=== PATIENT | female | born 1965 | race Caucasian/White ===

== ENCOUNTER 2016-11-29 18:47 | Emergency (ER) | payer SELFPAY ==
[~2016-11-29] VITALS: Ht 157.5 cm; Wt 80.8 kg
[~2016-11-29 18:47] MED LIST: AMOXICILLIN500 MG OR; AMOXICILLIN500 MG PO; AMPICILLIN500 MG OR; DARVOCET N-100100 - OR; DARVOCET-N 100100 MG OR; FIORICE1 PO; FIORICET PO; FLEXERIL OR; FLEXERIL PO; FLEXERIL5 MG PO; LORTAB 10-325 M1 TAB PO; LORTAB 5 OR; LORTAB5 PO; METHOCARBAM500 MG PO; NAPROSYN375 MG PO; NAPROSYN500 MG PO; NAPROXEN375 MG PO; NO HOME MEDS; NORCO1 TA1 PO; PERCOCET 5/325M1 TAB PO; PROMETHAZINE25 MG OR; ROBAXIN250 MG OR; TAM75CAP PO; TRAMADOL HCL50 MG OR; TRAMADOL HCL50 MG PO; ULTRAM50 M1 PO; ULTRAM50 MG OR; ZITHROMAX250 MG PO; ZOFRAN ODT4 MG OR; ZOFRAN ODT4 MG PO; ZOFRAN4 MG/TAB PO
[2016-11-29] MEDS ORDERED: NAPROSYN500 MG PO (19:44)
[2016-11-29] MEDS ORDERED: AMOXICILLIN500 MG PO (19:44)
[2016-11-29 19:54] VITALS: BP 139/74
== END 2016-11-29 19:54 | disposition home or self-care (01) | DRG 153 ==
LOC: ED 18:47
DX: J02.9 Acute pharyngitis, unspecified (principal); G35 Multiple sclerosis; F32.9 Major depressive disorder, single episode, unspecified; M50.20 Other cervical disc displacement, unspecified cervical region; M51.24 Other intervertebral disc displacement, thoracic region

== ENCOUNTER 2016-12-01 06:03 | Emergency (ER) | payer SELFPAY ==
[~2016-12-01] VITALS: Ht 157.5 cm; Wt 80.2 kg
[2016-12-01] MEDS ORDERED: ZOFRAN ODT4 MG PO (06:57)
[2016-12-01] MEDS ORDERED: FIORICET PO (06:57)
[2016-12-01 07:06] VITALS: BP 147/76
== END 2016-12-01 07:21 | disposition home or self-care (01) | DRG 103 ==
LOC: ED 06:03
DX: G43.909 Migraine, unspecified, not intractable, without status migrainosus (principal); R11.2 Nausea with vomiting, unspecified

== ENCOUNTER 2016-12-19 19:58 | Emergency (ER) | payer SELFPAY ==
[~2016-12-19] VITALS: Ht 157.5 cm; Wt 80.0 kg
[2016-12-19] MEDS ORDERED: PERCOCET1 TA2 PO (20:11)
[2016-12-19] MEDS ORDERED: ORPHENADRINE100 MG PO (21:59)
[2016-12-19] MEDS ORDERED: PERCOCET 5/325M1 TAB PO (21:59)
[2016-12-19 22:14] VITALS: BP 149/74
== END 2016-12-19 22:14 | disposition home or self-care (01) | DRG 563 ==
LOC: ED 19:58
DX: S86.912A Strain of unspecified muscle(s) and tendon(s) at lower leg level, left leg, initial encounter (principal); G35 Multiple sclerosis; F32.9 Major depressive disorder, single episode, unspecified; S39.012A Strain of muscle, fascia and tendon of lower back, initial encounter; S60.021A Contusion of right index finger without damage to nail, initial encounter; W01.0XXA Fall on same level from slipping, tripping and stumbling without subsequent striking against object, initial encounter; Y93.89 Activity, other specified; Y92.89 Other specified places as the place of occurrence of the external cause; Y99.0 Civilian activity done for income or pay

== ENCOUNTER 2017-03-07 11:54 | Emergency (ER) | payer SELFPAY ==
[~2017-03-07] VITALS: Ht 157.5 cm; Wt 78.2 kg
[~2017-03-07 11:54] MED LIST changes: +ORPHENADRINE100 MG PO; +PERCOCET1 TA2 PO
[2017-03-07 13:12] LABS: URINE BILIRUBIN - DIPSTICK NEGATIVE (NEGATIVE); URINE BLOOD DIPSTICK SMALL (NEGATIVE); URINE CLARITY CLEAR; URINE COLOR YELLOW; URINE GLUCOSE - DIPSTICK NEGATIVE (NEGATIVE); URINE KETONE NEGATIVE (NEGATIVE); URINE LEUK ESTERASE NEGATIVE (NEGATIVE); URINE NITRITE - DIPSTICK NEGATIVE (Negative); URINE PROTEIN - DIPSTICK NEGATIVE (NEG-TRACE); URINE SPECIFIC GRAVITY <=1.005; URINE UROBILINOGEN - DIPSTICK 0.2 E.U./dL (0.2)
[2017-03-07 13:13] LABS: URINE RBC 0-2 RBC/hpf (0-5)
[2017-03-07 13:14] LABS: BARBITURATES NEGATIVE (NEGATIVE); COCAINE NEGATIVE (NEGATIVE); METHADONE NEGATIVE (NEGATIVE); OXCYCODONE NEGATIVE (NEGATIVE); TETRAHYDROCANNABIONOL NEGATIVE (NEGATIVE); TRICYLIC ANTIDEPRESSANTS NEGATIVE (NEGATIVE)
[2017-03-07 13:15] LABS: HEMATOCRIT 39.5 % (37.0-47.0); HEMOGLOBIN 13.2 g/dl (12.0-16.0); IMMATURE GRANULOCYTES 0.5 % (0.0-1.0); MEAN CORPUSCULAR HGB 29.4 pG CALC (26.0-32.0); MEAN CORPUSCULAR HGB CONC 33.4 g/L CALC (32.0-36.0); NEUT# 5.24 thou/uL (2.00-7.15); RED BLOOD COUNT 4.49 mill/uL (4.20-5.60); RED CELL DISTRI WIDTH 12.1 % (11.5-15.5)
[2017-03-07 13:27] LABS: ALBUMIN 4.6 g/dL (3.2-5.0); ALKALINE PHOSPHATASE 111 u/l (38-126); ANION GAP 15 (6-22 (CALC)); BILIRUBIN, TOTAL 0.7 mg/dL (0.0-1.4); BUN 12 mg/dL (7-17); BUN/CREATININE RATIO 15 (12-20 (CALC)); CALCIUM 9.6 mg/dL (8.4-10.2); CARBON DIOXIDE 29 mmol/l (22-30); CHLORIDE 107 mmol/l (95-108); CREATININE 0.8 mg/dL (0.5-1.0); GFR > 60 ML/MIN (>=60 (CALC)); GFR FOR AFR.AMER. > 60 ML/MIN (>=60 (CALC)); GLUCOSE 101 mg/dL (65-105); POTASSIUM 3.8 mmol/l (3.5-5.1); SGOT/AST 21 u/l (14-36); SGPT/ALT 29 u/l (9-52); SODIUM 146 mmol/l (137-146)
[2017-03-07 13:40] LABS: MYOGLOBIN 35 ng/mL (0 - 62)
[2017-03-08 04:00] VITALS: BP 105/62
== END 2017-03-08 04:00 | DRG 92 ==
LOC: ED 11:54
PROVIDERS: Emergency Medicine
DX: G89.29 Other chronic pain (principal); R45.851 Suicidal ideations; M54.9 Dorsalgia, unspecified

== ENCOUNTER 2017-12-21 08:58 | Emergency (ER) | payer MEDICAID ==
[~2017-12-21] VITALS: Ht 157.5 cm; Wt 80.0 kg
[2017-12-21] MEDS ORDERED: ANXIETY MED (09:02)
[2017-12-21] MEDS ORDERED: TORADOL PO (09:28)
[2017-12-21] MEDS ORDERED: IMITREX25 MG PO (09:28)
[2017-12-21] MEDS ORDERED: ZOFRAN4 MG/TAB PO (09:28)
[2017-12-21] MEDS ORDERED: VALTREX1 GM PO (09:28)
[2017-12-21 10:01] VITALS: BP 135/70
== END 2017-12-21 10:01 | disposition home or self-care (01) ==
LOC: ED 08:58
DX: R51 Headache (principal); B02.9 Zoster without complications; R11.0 Nausea

== ENCOUNTER 2018-03-17 12:30 | Emergency (ER) | payer MEDICAID ==
[~2018-03-17] VITALS: Ht 157.5 cm; Wt 77.3 kg
[~2018-03-17 12:30] MED LIST changes: +ANXIETY MED; +IMITREX25 MG PO; +TORADOL PO; +VALTREX1 GM PO
[2018-03-17 14:53] VITALS: BP 126/77
== END 2018-03-17 14:53 | disposition home or self-care (01) ==
LOC: ED 12:30
DX: G43.909 Migraine, unspecified, not intractable, without status migrainosus (principal); R11.2 Nausea with vomiting, unspecified; F17.210 Nicotine dependence, cigarettes, uncomplicated; G35 Multiple sclerosis; M06.9 Rheumatoid arthritis, unspecified

== ENCOUNTER 2018-04-05 15:30 | Emergency (ER) | payer MEDICAID ==
[~2018-04-05] VITALS: Ht 157.5 cm; Wt 72.7 kg
[2018-04-05] MEDS ORDERED: IMITREX25 MG PO (16:16)
[2018-04-05] MEDS ORDERED: ZOFRAN4 MG/TAB PO (16:18)
[2018-04-05 16:46] VITALS: BP 139/81
== END 2018-04-05 16:46 | disposition home or self-care (01) ==
LOC: ED 15:30
DX: S80.12XA Contusion of left lower leg, initial encounter (principal); R51 Headache; M06.9 Rheumatoid arthritis, unspecified; M10.9 Gout, unspecified; G35 Multiple sclerosis; F17.210 Nicotine dependence, cigarettes, uncomplicated; W18.39XA Other fall on same level, initial encounter; Y92.009 Unspecified place in unspecified non-institutional (private) residence as the place of occurrence of the external cause

== ENCOUNTER 2018-08-07 12:54 | Emergency (ER) | payer OTHER ==
[~2018-08-07] VITALS: Ht 157.5 cm; Wt 72.7 kg
[2018-08-07] MEDS ORDERED: TORADOL PO (14:20)
[2018-08-07] MEDS ORDERED: PERCOGESI1 PO (14:20)
[2018-08-07 15:03] VITALS: BP 151/95
[2018-08-14] MEDS ORDERED: LIPITOR20 M1 PO (11:37)
== END 2018-08-07 15:04 | disposition home or self-care (01) ==
LOC: ED 12:54
DX: R51 Headache (principal); G89.29 Other chronic pain; G35 Multiple sclerosis; F17.210 Nicotine dependence, cigarettes, uncomplicated; R10.13 Epigastric pain; R52 Pain, unspecified

== ENCOUNTER 2018-08-22 06:43 | Day surgery (SDC) | payer OTHER ==
[~2018-08-22 06:43] MED LIST changes: +LIPITOR20 M1 PO; +PERCOGESI1 PO
[2018-08-22] MEDS ORDERED: DULOXETINE HCL30 MG PO (07:02)
[2018-08-22] MEDS ORDERED: ZIPRASIDONE HCL40 MG PO (07:02)
[2018-08-22] MEDS ORDERED: ESCITALOPRAM OX10 MG PO (07:03)
[2018-08-22 11:00] VITALS: BP 121/67
== END 2018-08-22 09:05 | disposition home or self-care (01) ==
LOC: ORM 06:43
PROVIDERS: ATTEND Anesthesiology Pain Medicine
DX: M54.5 Low back pain (principal); M12.9 Arthropathy, unspecified

== ENCOUNTER 2018-09-05 06:28 | Day surgery (SDC) | payer OTHER ==
[~2018-09-05] VITALS: Ht 157.5 cm; Wt 77.1 kg
[~2018-09-05 06:28] MED LIST changes: +DULOXETINE HCL30 MG PO; +ESCITALOPRAM OX10 MG PO; +ZIPRASIDONE HCL40 MG PO
[2018-09-05 07:58] VITALS: BP 127/59
[2018-09-11] MEDS ORDERED: NORCO1 TA2 PO (09:27)
== END 2018-09-05 08:15 | disposition home or self-care (01) ==
LOC: ORM 06:28
PROVIDERS: ATTEND Anesthesiology Pain Medicine
DX: M54.5 Low back pain (principal); M12.9 Arthropathy, unspecified

== ENCOUNTER 2018-09-13 09:55 | Emergency (ER) | payer OTHER ==
[~2018-09-13] VITALS: Ht 157.5 cm; Wt 90.0 kg
[~2018-09-13 09:55] MED LIST changes: +NORCO1 TA2 PO
[2018-09-13] MEDS ORDERED: MOTRIN400 MG PO (13:15)
[2018-09-13 13:36] VITALS: BP 130/81
== END 2018-09-13 13:36 | disposition home or self-care (01) ==
LOC: ED 09:55
DX: S96.912A Strain of unspecified muscle and tendon at ankle and foot level, left foot, initial encounter (principal); M25.572 Pain in left ankle and joints of left foot; M77.32 Calcaneal spur, left foot

== ENCOUNTER 2018-09-19 05:43 | Day surgery (SDC) | payer OTHER ==
[~2018-09-19 05:43] MED LIST changes: +MOTRIN400 MG PO
[2018-09-19 08:05] VITALS: BP 114/67
[2018-09-19] MEDS ORDERED: NORCO1 TA2 PO (09:09)
== END 2018-09-19 09:10 | disposition home or self-care (01) ==
LOC: ORM 05:43
PROVIDERS: ATTEND Anesthesiology Pain Medicine
DX: M54.5 Low back pain (principal); M12.9 Arthropathy, unspecified

== ENCOUNTER 2018-12-13 16:56 | Emergency (ER) | payer OTHER ==
[~2018-12-13] VITALS: Ht 157.5 cm; Wt 170.0 kg
[2018-12-13 17:45] LABS: HEMATOCRIT 40.7 % (37.0-47.0); HEMOGLOBIN 13.3 g/dl (12.0-16.0); IMMATURE GRANULOCYTES 0.3 % (0.0-5.0); MEAN CELL VOLUME 87.2 fL CALC (80.0-100.0); MEAN CORPUSCULAR HGB 28.5 pG CALC (26.0-32.0); MEAN CORPUSCULAR HGB CONC 32.7 g/L CALC (32.0-36.0); NEUT# 5.43 thou/uL (2.00-7.15); RED BLOOD COUNT 4.67 mill/uL (4.20-5.60); RED CELL DISTRI WIDTH 12.2 % (11.5-15.5)
[2018-12-13 17:50] LABS: URINE BILIRUBIN - DIPSTICK NEGATIVE (NEGATIVE); URINE BLOOD DIPSTICK NEGATIVE (NEGATIVE); URINE COLOR YELLOW; URINE GLUCOSE - DIPSTICK NEGATIVE (NEGATIVE); URINE KETONE NEGATIVE (NEGATIVE); URINE LEUK ESTERASE NEGATIVE (NEGATIVE); URINE NITRITE - DIPSTICK NEGATIVE (Negative); URINE PH 7.5 (4.5-8.0); URINE PROTEIN - DIPSTICK NEGATIVE (NEG-TRACE); URINE UROBILINOGEN - DIPSTICK 0.2 E.U./dL (0.2)
[2018-12-13 17:58] LABS: ALBUMIN 4.5 g/dL (3.2-5.0); ALKALINE PHOSPHATASE 100 u/l (38-126); ANION GAP 15 (6-22 (CALC)); BILIRUBIN, TOTAL 0.6 mg/dL (0.0-1.4); BUN 10 mg/dL (7-17); BUN/CREATININE RATIO 14 (12-20 (CALC)); CARBON DIOXIDE 30 mmol/l (22-30); CHLORIDE 102 mmol/l (95-108); CREATININE 0.7 mg/dL (0.5-1.0); GFR > 60 ML/MIN (>=60 (CALC)); GFR FOR AFR.AMER. > 60 ML/MIN (>=60 (CALC)); LIPASE 228 u/l (23-300); SGOT/AST 22 u/l (14-36); SODIUM 142 mmol/l (137-146); TOTAL PROTEIN 7.3 g/dL (6.3-8.2)
[2018-12-13 19:00] VITALS: BP 146/84
[2018-12-18] MEDS ORDERED: NORCO1 TA2 PO (08:23)
== END 2018-12-13 19:18 | disposition home or self-care (01) ==
LOC: ED 16:56
PROVIDERS: Family Medicine
DX: R10.11 Right upper quadrant pain (principal); R11.0 Nausea; R51 Headache; F17.200 Nicotine dependence, unspecified, uncomplicated; G35 Multiple sclerosis
CPT/HCPCS: Q9967

== ENCOUNTER 2019-03-27 16:46 | Emergency (ER) | payer MEDICARE, OTHER ==
[~2019-03-27] VITALS: Ht 157.5 cm; Wt 86.4 kg
[~2019-03-27 16:46] MED LIST changes: +BACLOFEN20 MG PO
[2019-03-27 17:19] LABS: HEMATOCRIT 39.5 % (37.0-47.0); HEMOGLOBIN 13.1 g/dl (12.0-16.0); IMMATURE GRANULOCYTES 0.4 % (0.0-5.0); MEAN CELL VOLUME 85.9 fL CALC (80.0-100.0); MEAN CORPUSCULAR HGB 28.5 pG CALC (26.0-32.0); MEAN CORPUSCULAR HGB CONC 33.2 g/L CALC (32.0-36.0); NEUT# 8.93 thou/uL (2.00-7.15); RED BLOOD COUNT 4.6 mill/uL (4.20-5.60); RED CELL DISTRI WIDTH 12.4 % (11.5-15.5)
[2019-03-27 17:40] LABS: ALBUMIN 4.3 g/dL (3.2-5.0); ALKALINE PHOSPHATASE 105 u/l (38-126); BUN 14 mg/dL (7-17); BUN/CREATININE RATIO 22 (12-20 (CALC)); CHLORIDE 105 mmol/l (95-108); CREATININE 0.7 mg/dL (0.5-1.0); GFR > 60 ML/MIN (>=60 (CALC)); GFR FOR AFR.AMER. > 60 ML/MIN (>=60 (CALC)); LIPASE 48 u/l (23-300); POTASSIUM 3.6 mmol/l (3.5-5.1); SGOT/AST 19 u/l (14-36); SODIUM 137 mmol/l (137-146); TOTAL PROTEIN 7.3 g/dL (6.3-8.2)
[2019-03-27 17:42] LABS: ANION GAP 13 (6-22 (CALC)); BILIRUBIN, TOTAL 1.1 mg/dL (0.0-1.4); CARBON DIOXIDE 23 mmol/l (22-30)
[2019-03-27 18:44] LABS: URINE BILIRUBIN - DIPSTICK NEGATIVE (NEGATIVE); URINE BLOOD DIPSTICK TRACE-INTACT (NEGATIVE); URINE COLOR YELLOW; URINE GLUCOSE - DIPSTICK 100 mg/dL (NEGATIVE); URINE KETONE TRACE mg/dL (NEGATIVE); URINE LEUK ESTERASE NEGATIVE (NEGATIVE); URINE NITRITE - DIPSTICK NEGATIVE (Negative); URINE PROTEIN - DIPSTICK TRACE mg/dL (NEG-TRACE); URINE SPECIFIC GRAVITY 1.015; URINE UROBILINOGEN - DIPSTICK >=8.0 E.U./dL (0.2)
[2019-03-27] MEDS ORDERED: PERCOCET 10/31 COMBO PO (18:46)
[2019-03-27] MEDS ORDERED: ONDANSETRON4 MG PO (19:00)
[2019-03-27 19:50] VITALS: BP 130/49
== END 2019-03-27 20:02 | disposition home or self-care (01) ==
LOC: ED 16:46
PROVIDERS: Family Medicine
DX: R10.84 Generalized abdominal pain (principal); B34.9 Viral infection, unspecified; G35 Multiple sclerosis; M06.9 Rheumatoid arthritis, unspecified; R50.9 Fever, unspecified; R11.2 Nausea with vomiting, unspecified; R05 Cough; R19.7 Diarrhea, unspecified; M10.9 Gout, unspecified; F17.210 Nicotine dependence, cigarettes, uncomplicated

== ENCOUNTER 2019-10-19 00:09 | Emergency (ER) | payer MEDICARE, MEDICAID ==
[~2019-10-19 00:09] MED LIST changes: +ONDANSETRON4 MG PO; +PERCOCET 10/31 COMBO PO
[2019-10-19] MEDS ORDERED: PERCOCET 5/325M1 TAB PO (02:10)
[2019-10-19 02:55] VITALS: BP 133/95
[2019-12-26] MEDS ORDERED: KLONOPIN0.5 MG PO (00:55)
[2019-12-26] MEDS ORDERED: OXYCOD-APAP1 TA1 PO (00:55)
[2019-12-26] MEDS ORDERED: LYRICA50 MG PO (00:59)
== END 2019-10-19 03:51 | disposition home or self-care (01) ==
LOC: ED 00:09
DX: S83.92XA Sprain of unspecified site of left knee, initial encounter (principal); S93.402A Sprain of unspecified ligament of left ankle, initial encounter; G35 Multiple sclerosis; M06.9 Rheumatoid arthritis, unspecified; M10.9 Gout, unspecified; F17.200 Nicotine dependence, unspecified, uncomplicated; X50.0XXA Overexertion from strenuous movement or load, initial encounter; Y92.009 Unspecified place in unspecified non-institutional (private) residence as the place of occurrence of the external cause
CPT/HCPCS: L1830

== ENCOUNTER 2019-12-25 20:59 | Emergency (ER) | payer MEDICARE, MEDICAID ==
[~2019-12-25] VITALS: Ht 157.5 cm; Wt 86.3 kg
[2019-12-25] MEDS ORDERED: HYDROCO/APAP1 TA9 PO (21:40)
[2019-12-25] MEDS ORDERED: BACTRIM DS1 TAB PO (21:40)
[2019-12-25 22:37] VITALS: BP 150/67
[2019-12-26] MEDS ORDERED: KLONOPIN0.5 MG PO (00:55)
[2019-12-26] MEDS ORDERED: OXYCOD-APAP1 TA1 PO (00:55)
[2019-12-26] MEDS ORDERED: LYRICA50 MG PO (00:59)
== END 2019-12-25 22:37 | disposition home or self-care (01) ==
LOC: ED 20:59
PROC: 0U9L0ZZ Drainage of Vestibular Gland, Open Approach (ICD-10-PCS; principal; 2019-12-25)
DX: N75.1 Abscess of Bartholin's gland (principal); F17.210 Nicotine dependence, cigarettes, uncomplicated

== ENCOUNTER 2020-06-01 21:18 | Emergency (ER) | payer MEDICARE, MEDICAID ==
[~2020-06-01] VITALS: Ht 157.5 cm; Wt 77.0 kg
[~2020-06-01 21:18] MED LIST changes: +BACTRIM DS1 TAB PO; +HYDROCO/APAP1 TA9 PO; +KLONOPIN0.5 MG PO; +LYRICA50 MG PO; +OXYCOD-APAP1 TA1 PO
[2020-06-01] MEDS ORDERED: CYCLOBENZAPRINE10 MG PO (22:11)
[2020-06-01] MEDS ORDERED: NAPROXEN500 MG PO (22:11)
[2020-06-01 22:50] VITALS: BP 96/56
== END 2020-06-01 22:55 | disposition home or self-care (01) ==
LOC: ED 21:18
DX: G89.29 Other chronic pain (principal); M54.5 Low back pain; G35 Multiple sclerosis; M10.9 Gout, unspecified; M06.9 Rheumatoid arthritis, unspecified; F17.200 Nicotine dependence, unspecified, uncomplicated

== ENCOUNTER 2020-06-18 06:57 | Day surgery (SDC) | payer MEDICARE, MEDICAID ==
[~2020-06-18] VITALS: Ht 157.5 cm; Wt 83.9 kg
[~2020-06-18 06:57] MED LIST changes: +CYCLOBENZAPRINE10 MG PO; +NAPROXEN500 MG PO
[2020-06-18 09:06] VITALS: BP 121/57
== END 2020-06-18 09:25 | disposition home or self-care (01) ==
LOC: ENDO 06:57 → ORM 08:00 → ENDO 09:25 → ORM 09:45
PROVIDERS: ATTEND Surgery
PROC: 0DJD8ZZ Inspection of Lower Intestinal Tract, Via Natural or Artificial Opening Endoscopic (ICD-10-PCS; principal; 2020-06-18)
PROC: 0DB48ZX Excision of Esophagogastric Junction, Via Natural or Artificial Opening Endoscopic, Diagnostic (ICD-10-PCS; 2020-06-18)
PROC: 0DB78ZX Excision of Stomach, Pylorus, Via Natural or Artificial Opening Endoscopic, Diagnostic (ICD-10-PCS; 2020-06-18)
DX: K21.00 Gastro-esophageal reflux disease with esophagitis, without bleeding (principal); K25.9 Gastric ulcer, unspecified as acute or chronic, without hemorrhage or perforation; K44.9 Diaphragmatic hernia without obstruction or gangrene; Z12.11 Encounter for screening for malignant neoplasm of colon; G35 Multiple sclerosis; M10.9 Gout, unspecified; M06.9 Rheumatoid arthritis, unspecified; Z86.010 Personal history of colon polyps; Z20.822 Contact with and (suspected) exposure to COVID-19
CPT/HCPCS: 43239; G0105

== ENCOUNTER 2020-11-05 08:36 | Day surgery (SDC) | payer MEDICARE, MEDICAID ==
[~2020-11-05] VITALS: Ht 157.5 cm; Wt 81.6 kg
[~2020-11-05 08:36] MED LIST changes: +ADLT ASA LOW81 MG PO; +ATORVASTATIN CA40 MG PO; +CIMETIDINE400 MG PO; +VENTOLIN HFA IN
[2020-11-05 11:08] VITALS: BP 127/65
== END 2020-11-05 10:13 | disposition home or self-care (01) ==
LOC: ENDO 08:36 → ORM 10:15 → ENDO 10:15 → ORM 11:15
PROVIDERS: ATTEND Surgery
PROC: 0DJ08ZZ Inspection of Upper Intestinal Tract, Via Natural or Artificial Opening Endoscopic (ICD-10-PCS; principal; 2020-11-05)
DX: K44.9 Diaphragmatic hernia without obstruction or gangrene (principal); M10.9 Gout, unspecified; M06.9 Rheumatoid arthritis, unspecified; F17.200 Nicotine dependence, unspecified, uncomplicated; Z79.899 Other long term (current) drug therapy; Z87.11 Personal history of peptic ulcer disease

== ENCOUNTER 2020-12-15 08:37 | Observation (INO) | payer MEDICARE, MEDICAID ==
[2020-12-15] VITALS (8 sets, daily range): BP systolic 82–109; BP diastolic 52–71
[~2020-12-15] VITALS: Ht 157.5 cm; Wt 76.8 kg
--- NOTE | 2020-12-15 16:35 | NUR ---
PT ARRIVED ON UNIT @ 1620 TRANSPORTED BY PACU STAFF VIA BED, GROGGY BUT ORIENTED, C/O ACHING ABD PAIN @ 6/10 AT THIS TIME, ORIENTED TO ROOM AND CALL CREWS, O2 @ 2L VIA NC IN PLACE, INC X 4 WELL APPROXIMATED WITH STERI GLUE IN PLACE, ABD BINDER IN PLACE, VITAL SIGNS BEING MONITORED AND RECORDED, WILL CONTINUE TO MONITOR.
--- NOTE | 2020-12-15 19:18 | NUR ---
RECEIVED REPORT FROM NURSE MP, PATIENT RESTING IN C/O PAIN ON ABDOMEN PS 10/10, NCNA IN ROOM ASSISTING PATIENT BEDSIDE COMODE, CALL LIGHT IN PLACE, WILL MEDICATE.
--- NOTE | 2020-12-15 19:49 | NUR ---
DILAUDID GIVEN AT THIS TIME, WILL REEVALUATE.
--- NOTE | 2020-12-15 20:00 | NUR ---
PATIENT ALERT ORIENTED ABLE TO MAKE NEEDS KNONW, WITH ONGOING D51/2 NS @ 100CC/HR INFUSING WELL ON LEFT WRIST, ON O2 @ 2LPM VIA MNC, BREATHING ROBERT UNLABORED, LUNG SOUNDS CLEAR, 4 INCISION WITH DERMABOND CDI, ABDOMINAL BINDER IN PLACE, PATIENT REMAINS ON FULL LIQUID DIET, TOLERATED, DENIES NAUSE/VOMITING, SCD IN PLACE, CALL LIGHT AT REACH.
[2020-12-16] VITALS: BP 110/76
--- NOTE | 2020-12-16 | NUR ---
PATIENT C/O PAIN ON INCISION SITE DUE TORADOL GIVEN AT THIS TIME,CALL LIGHT AT REACH.
[2020-12-16 04:00] VITALS: BP 130/74
--- NOTE | 2020-12-16 05:05 | NUR ---
PATIENT RESTING AT THIS TIME,C/O PAIN ON INCISION SITE WILL MEDICATE, CALL LIGHT AT REACH.
[2020-12-16 06:38] LABS: HEMATOCRIT 35.5 % (37.0-47.0); HEMOGLOBIN 11.1 g/dl (12.0-16.0); IMMATURE GRANULOCYTES 0.3 % (0.0-5.0); MEAN CELL VOLUME 90.6 fL CALC (80.0-100.0); MEAN CORPUSCULAR HGB 28.3 pG CALC (26.0-32.0); MEAN CORPUSCULAR HGB CONC 31.3 g/dL CAL (32.0-36.0); NEUT# 4.82 thou/uL (2.00-7.15); RED BLOOD COUNT 3.92 mill/uL (4.20-5.60); RED CELL DISTRI WIDTH 13.4 % (11.5-15.5)
--- NOTE | 2020-12-16 07:20 | NUR ---
PT note: Patient is screened for PT intervention and no needs are identified at this time
--- NOTE | 2020-12-16 08:00 | NUR ---
SHIFT CHANGE REPORT, PT AWAKE ALERT AND ORIENTED, REPORTS PAIN LEVEL STILL HIGH AT 8-10, IVF INFUSING, CALL CREWS IN REACH. DR FREEMAN NOTIFIED THAT PT LIVES ALONE AND HAS NO ONE TO BRING IN HER HOME MEDS, OUR PHARMACY DOES NOT HAVE HER HOME DOSAGE AND WHAT WOULD HE SUGGEST, AWAITING RESPONSE FROM MD NOW, WILL CONTINUE TO MONITOR.
[2020-12-16 09:08] VITALS: BP 122/61
[2020-12-16 10:59] VITALS: BP 121/66
--- NOTE | 2020-12-16 12:27 | NUR ---
Discharge instructions given. Patient verbalizes understanding of same. Discharged in stable condition via Wheelchair to Home with family. All belongings sent with pt.
== END 2020-12-16 12:24 | disposition home or self-care (01) ==
LOC: ORM 08:37 → MS2 16:12
PROVIDERS: ADMIT Surgery; ATTEND Surgery
PROC: 0BQT4ZZ Repair Diaphragm, Percutaneous Endoscopic Approach (ICD-10-PCS; principal; 2020-12-15)
DX: K44.9 Diaphragmatic hernia without obstruction or gangrene (principal); G35 Multiple sclerosis; M10.9 Gout, unspecified; M06.9 Rheumatoid arthritis, unspecified; F17.200 Nicotine dependence, unspecified, uncomplicated
CPT/HCPCS: J0131; J2710

== ENCOUNTER 2021-03-08 07:04 | Observation (INO) | payer MEDICARE, MEDICAID ==
[~2021-03-08] VITALS: Ht 157.5 cm; Wt 82.0 kg
[~2021-03-08 07:04] MED LIST changes: +LYRICA300 MG PO; -LYRICA50 MG PO
[2021-03-08 07:58] LABS: HEMATOCRIT 41.6 % (37.0-47.0); HEMOGLOBIN 13.2 g/dl (12.0-16.0); IMMATURE GRANULOCYTES 0.2 % (0.0-5.0); MEAN CELL VOLUME 89.5 fL CALC (80.0-100.0); MEAN CORPUSCULAR HGB 28.4 pG CALC (26.0-32.0); MEAN CORPUSCULAR HGB CONC 31.7 g/dL CAL (32.0-36.0); NEUT# 2.65 thou/uL (2.00-7.15); RED BLOOD COUNT 4.65 mill/uL (4.20-5.60); RED CELL DISTRI WIDTH 13.4 % (11.5-15.5)
[2021-03-08 08:17] LABS: PROTHROMBIN TIME 10.2 SECONDS (9.0-12.5)
[2021-03-08 08:20] LABS: ALBUMIN 4.3 g/dL (3.2-5.0); ALKALINE PHOSPHATASE 110 u/l (38-126); ANION GAP 9 (6-22 (CALC)); BILIRUBIN, TOTAL 0.9 mg/dL (0.0-1.4); BUN 11 mg/dL (7-17); BUN/CREATININE RATIO 14 (12-20 (CALC)); CARBON DIOXIDE 30 mmol/l (22-30); CHLORIDE 104 mmol/l (95-108); CREATININE 0.7 mg/dL (0.5-1.0); GFR > 60 ML/MIN (>=60 (CALC)); GFR FOR AFR.AMER. > 60 ML/MIN (>=60 (CALC)); POTASSIUM 3.6 mmol/l (3.5-5.1); SGOT/AST 21 u/l (14-36); SODIUM 140 mmol/l (137-146); TOTAL PROTEIN 7.4 g/dL (6.3-8.2)
[2021-03-08 10:56] LABS: URINE BILIRUBIN - DIPSTICK NEGATIVE (NEGATIVE); URINE BLOOD DIPSTICK NEGATIVE (NEGATIVE); URINE COLOR YELLOW; URINE GLUCOSE - DIPSTICK NEGATIVE (NEGATIVE); URINE KETONE NEGATIVE (NEGATIVE); URINE LEUK ESTERASE NEGATIVE (NEGATIVE); URINE PROTEIN - DIPSTICK NEGATIVE (NEG-TRACE); URINE UROBILINOGEN - DIPSTICK 0.2 E.U./dL (0.2)
[2021-03-08 10:59] LABS: URINE NITRITE - DIPSTICK NEGATIVE (Negative)
[2021-03-08] MEDS ORDERED: PERCOCET1 TA4 PO (14:05)
[2021-03-08] MEDS ORDERED: VITAMIN B-12250 MCG PO (14:06)
[2021-03-08] MEDS ORDERED: VITAMIN7 PO (14:07)
[2021-03-08 14:20] VITALS: BP 125/74
[2021-03-08 17:20] VITALS: BP 117/73
[2021-03-08 19:00] VITALS: BP 134/67
[2021-03-08 23:51] VITALS: BP 115/73
[2021-03-09 04:22] VITALS: BP 95/40
[2021-03-09 05:42] LABS: HEMATOCRIT 42.7 % (37.0-47.0); HEMOGLOBIN 13.5 g/dl (12.0-16.0); MEAN CELL VOLUME 90.7 fL CALC (80.0-100.0); MEAN CORPUSCULAR HGB 28.7 pG CALC (26.0-32.0); MEAN CORPUSCULAR HGB CONC 31.6 g/dL CAL (32.0-36.0); RED BLOOD COUNT 4.71 mill/uL (4.20-5.60)
[2021-03-09 05:52] LABS: BUN 23 mg/dL (7-17); BUN/CREATININE RATIO 25 (12-20 (CALC)); CALCULATED LDLCHOLESTEROL 150 mg/dL (62-129 (CALC)); CARBON DIOXIDE 27 mmol/l (22-30); CHLORIDE 104 mmol/l (95-108); CHOLESTEROL HDL RATIO 5.3 (<4.4 (CALC)); CREATININE 0.9 mg/dL (0.5-1.0); GFR > 60 ML/MIN (>=60 (CALC)); GFR FOR AFR.AMER. > 60 ML/MIN (>=60 (CALC)); HDL CHOLESTEROL 42 mg/dL (>=40); MAGNESIUM 2.2 mg/dL (1.6-2.3); SODIUM 139 mmol/l (137-146); TOTAL CHOLESTEROL 221 mg/dl (0-199); TOTAL TRIGLYCERIDES 149 mg/dl (30-149); VLDL CHOLESTROL 30 mg/dl (2-49 (CALC))
[2021-03-09 05:59] LABS: ANION GAP 12 (6-22 (CALC)); POTASSIUM 4.4 mmol/l (3.5-5.1)
[2021-03-09 07:20] VITALS: BP 110/62
[2021-03-09 10:43] VITALS: BP 141/80
[2021-03-09] MEDS ORDERED: PREDNISONE10 MG PO (10:57)
[2021-03-09] MEDS ORDERED: WALKER WHEELS/FIXED (11:09)
== END 2021-03-09 13:10 ==
LOC: ED 07:04 → ED-I 12:40 → ED 12:59 → MS2 13:00
PROVIDERS: Emergency Medicine; Nurse Practitioner; ADMIT Hospitalist; ATTEND Hospitalist
DX: G35 Multiple sclerosis (principal); G89.4 Chronic pain syndrome; M10.9 Gout, unspecified; M06.9 Rheumatoid arthritis, unspecified; E78.5 Hyperlipidemia, unspecified; F41.9 Anxiety disorder, unspecified; F17.200 Nicotine dependence, unspecified, uncomplicated; Z91.041 Radiographic dye allergy status; Z20.822 Contact with and (suspected) exposure to COVID-19
CPT/HCPCS: J1650

== ENCOUNTER 2021-09-06 13:59 | Emergency (ER) | payer MEDICARE, MEDICAID ==
[~2021-09-06] VITALS: Ht 157.5 cm; Wt 86.3 kg
[~2021-09-06 13:59] MED LIST changes: +PERCOCET1 TA4 PO; +PREDNISONE10 MG PO; +VITAMIN B-12250 MCG PO; +VITAMIN7 PO; +WALKER WHEELS/FIXED
[2021-09-06 14:35] VITALS: BP 147/75
[2021-09-06 15:07] VITALS: BP 136/78
[2021-09-06 15:27] LABS: ALKALINE PHOSPHATASE 115 u/l (38-126); BILIRUBIN, TOTAL 0.6 mg/dL (0.0-1.4); BUN 15 mg/dL (7-17); BUN/CREATININE RATIO 27 (12-20 (CALC)); CARBON DIOXIDE 26 mmol/l (22-30); CHLORIDE 109 mmol/l (95-108); CREATININE 0.6 mg/dL (0.5-1.0); GFR > 60 ML/MIN (>=60 (CALC)); GFR FOR AFR.AMER. > 60 ML/MIN (>=60 (CALC)); LIPASE 43 u/l (23-300); SGOT/AST 23 u/l (14-36); SODIUM 141 mmol/l (137-146); TOTAL PROTEIN 6.8 g/dL (6.3-8.2)
[2021-09-06 15:36] LABS: ANION GAP 10 (6-22 (CALC)); POTASSIUM 3.5 mmol/l (3.5-5.1)
[2021-09-06 15:37] VITALS: BP 154/88
[2021-09-06 15:45] VITALS: BP 141/62
[2021-09-06 15:59] LABS: HEMATOCRIT 38.6 % (37.0-47.0); HEMOGLOBIN 12.5 g/dl (12.0-16.0); IMMATURE GRANULOCYTES 0.1 % (0.0-5.0); MEAN CELL VOLUME 87.9 fL CALC (80.0-100.0); MEAN CORPUSCULAR HGB 28.5 pG CALC (26.0-32.0); MEAN CORPUSCULAR HGB CONC 32.4 g/dL CAL (32.0-36.0); NEUT# 5.04 thou/uL (2.00-7.15); RED BLOOD COUNT 4.39 mill/uL (4.20-5.60); RED CELL DISTRI WIDTH 12.4 % (11.5-15.5)
[2021-09-06 16:17] VITALS: BP 141/62
== END 2021-09-06 16:25 | disposition home or self-care (01) ==
LOC: ED 13:59
DX: S16.1XXA Strain of muscle, fascia and tendon at neck level, initial encounter (principal); S39.012A Strain of muscle, fascia and tendon of lower back, initial encounter; S20.219A Contusion of unspecified front wall of thorax, initial encounter; S09.90XA Unspecified injury of head, initial encounter; G35 Multiple sclerosis; M10.9 Gout, unspecified; M06.9 Rheumatoid arthritis, unspecified; F17.200 Nicotine dependence, unspecified, uncomplicated; X58.XXXA Exposure to other specified factors, initial encounter

== ENCOUNTER 2022-01-15 03:31 | Emergency (ER) | payer MEDICARE, MEDICAID ==
[~2022-01-15] VITALS: Ht 157.5 cm; Wt 77.0 kg
[2022-01-15 03:42] VITALS: BP 167/81
[2022-01-15 03:45] VITALS: BP 169/73
[2022-01-15 04:01] VITALS: BP 150/90
[2022-01-15 04:12] LABS: HEMATOCRIT 37.6 % (37.0-47.0); HEMOGLOBIN 12.6 g/dl (12.0-16.0); IMMATURE GRANULOCYTES 0.2 % (0.0-5.0); MEAN CELL VOLUME 84.7 fL CALC (80.0-100.0); MEAN CORPUSCULAR HGB 28.4 pG CALC (26.0-32.0); MEAN CORPUSCULAR HGB CONC 33.5 g/dL CAL (32.0-36.0); NEUT# 5.15 thou/uL (2.00-7.15); RED BLOOD COUNT 4.44 mill/uL (4.20-5.60); RED CELL DISTRI WIDTH 12.7 % (11.5-15.5)
[2022-01-15 05:10] VITALS: BP 150/90
== END 2022-01-15 05:21 | disposition home or self-care (01) ==
LOC: ED 03:31
PROVIDERS: Family Medicine
DX: B34.9 Viral infection, unspecified (principal); G35 Multiple sclerosis; M10.9 Gout, unspecified; M06.9 Rheumatoid arthritis, unspecified; F17.200 Nicotine dependence, unspecified, uncomplicated; Z20.822 Contact with and (suspected) exposure to COVID-19

== ENCOUNTER 2023-06-11 13:07 | Observation (INO) | payer MEDICARE, MEDICAID ==
[2023-06-11] VITALS (31 sets, daily range): BP systolic 82–135; BP diastolic 35–72
[~2023-06-11] VITALS: Ht 157.5 cm; Wt 74.6 kg
[~2023-06-11 13:07] MED LIST changes: +TRAZODONE100 MG PO
[2023-06-11 13:27] LABS: BASO% 0.5 % (0-3); EOS% 0.5 % (0-8); HEMOGLOBIN 14.1 g/dl (12.0-16.0); IMMATURE GRANULOCYTES 0.2 % (0.0-5.0); MEAN CELL VOLUME 88.3 fL CALC (80.0-100.0); MEAN CORPUSCULAR HGB CONC 32.8 g/dL CAL (32.0-36.0); MONO% 8.3 % (2-13); NEUT# 5.58 thou/uL (2.00-7.15); NEUT% 59.5 % (42-76); RED BLOOD COUNT 4.87 mill/uL (4.20-5.60); RED CELL DISTRI WIDTH 12.3 % (11.5-15.5)
[2023-06-11 13:39] LABS: INTERNATIONAL NORMALIZED RATIO 1.1 RATIO (0.7-1.3); PROTHROMBIN TIME 10.7 SECONDS (9.0-12.5)
[2023-06-11 13:42] LABS: ALBUMIN 4.8 g/dL (3.2-5.0); ALKALINE PHOSPHATASE 79 u/l (38-126); BUN 26 mg/dL (7-17); BUN/CREATININE RATIO 21 (12-20 (CALC)); CHLORIDE 104 mmol/l (95-108); CHOLESTEROL HDL RATIO 4.9 (<4.4 (CALC)); CREATININE 1.2 mg/dL (0.5-1.0); GFR FOR AFR.AMER. 56 ML/MIN (>=60 (CALC)); GFR OTHER RACES 46 ML/MIN (>=60 (CALC)); HDL CHOLESTEROL 53 mg/dL (39.0-59.0); POTASSIUM 3.1 mmol/l (3.5-5.1); SGOT/AST 26 u/l (14-36); SODIUM 139 mmol/l (137-146); TOTAL TRIGLYCERIDES 102 mg/dl (0-149); VLDL CHOLESTROL 20 mg/dl (2-49 (CALC))
[2023-06-11 13:55] LABS: ANION GAP 12 (6-22 (CALC)); CALCULATED LDLCHOLESTEROL 187 mg/dL (62-129 (CALC)); CARBON DIOXIDE 26 mmol/l (22-30); TOTAL CHOLESTEROL 260 mg/dl (0-199)
[2023-06-11 18:44] LABS: URINE BILIRUBIN - DIPSTICK Negative (NEGATIVE); URINE BLOOD DIPSTICK Negative (NEGATIVE); URINE COLOR Yellow; URINE GLUCOSE - DIPSTICK Negative (NEGATIVE); URINE KETONE Trace mg/dL (NEGATIVE); URINE LEUK ESTERASE Negative (NEGATIVE); URINE NITRITE - DIPSTICK Positive (Negative); URINE PH 5.5 (4.5-8.0); URINE PROTEIN - DIPSTICK Negative (NEG-TRACE); URINE SPECIFIC GRAVITY 1.025; URINE UROBILINOGEN - DIPSTICK 0.2 E.U./dL (0.2)
[2023-06-11 18:55] LABS: URINE BACTERIA MANY hpf; URINE HYALINE CAST FEW lpf (NONE-RARE); URINE SQUAMOUS EPITHELIAL CELL MANY EPI/hpf (0-FEW); URINE WBC 0-2 WBC/hpf (0-5)
[2023-06-11 22:16] LABS: CALCULATED LDLCHOLESTEROL 174 mg/dL (62-129 (CALC)); CHOLESTEROL HDL RATIO 4.8 (<4.4 (CALC)); HDL CHOLESTEROL 50 mg/dL (39.0-59.0); TOTAL CHOLESTEROL 237 mg/dl (0-199); TOTAL TRIGLYCERIDES 67 mg/dl (0-149); VLDL CHOLESTROL 13 mg/dl (2-49 (CALC))
[2023-06-12] VITALS (9 sets, daily range): BP systolic 100–138; BP diastolic 45–81
[2023-06-12 05:09] LABS: BASO% 0.1 % (0-3); HEMATOCRIT 39.7 % (37.0-47.0); HEMOGLOBIN 12.4 g/dl (12.0-16.0); IMMATURE GRANULOCYTES 0.1 % (0.0-5.0); LYMPH% 11.9 % (15-41); MEAN CORPUSCULAR HGB 29.5 pG CALC (26.0-32.0); MEAN CORPUSCULAR HGB CONC 31.2 g/dL CAL (32.0-36.0); MONO% 2.1 % (2-13); NEUT# 6.03 thou/uL (2.00-7.15); NEUT% 85.8 % (42-76); RED BLOOD COUNT 4.2 mill/uL (4.20-5.60); RED CELL DISTRI WIDTH 12.4 % (11.5-15.5)
[2023-06-12 05:21] LABS: MEAN CELL VOLUME 94.5 fL CALC (80.0-100.0)
[2023-06-12 05:30] LABS: BUN 20 mg/dL (7-17); BUN/CREATININE RATIO 26 (12-20 (CALC)); CARBON DIOXIDE 22 mmol/l (22-30); CHLORIDE 107 mmol/l (95-108); CREATININE 0.8 mg/dL (0.5-1.0); GFR FOR AFR.AMER. > 60 ML/MIN (>=60 (CALC)); GFR OTHER RACES > 60 ML/MIN (>=60 (CALC)); SODIUM 137 mmol/l (137-146)
[2023-06-12 05:37] LABS: ANION GAP 13 (6-22 (CALC)); POTASSIUM 4.5 mmol/l (3.5-5.1)
[2023-06-12] MEDS ORDERED: ATORVASTATIN CA40 MG PO (17:42)
== END 2023-06-12 18:15 | disposition home or self-care (01) ==
LOC: ED 13:07 → ED-I 16:05 → ED 20:01 → ICU 20:02
PROVIDERS: Family Medicine; ADMIT Student in an Organized Health Care Education/Training Program; ATTEND Student in an Organized Health Care Education/Training Program
DX: R42 Dizziness and giddiness (principal); R53.1 Weakness; R20.0 Anesthesia of skin; I10 Essential (primary) hypertension; G35 Multiple sclerosis; M06.9 Rheumatoid arthritis, unspecified; M10.9 Gout, unspecified; F41.9 Anxiety disorder, unspecified; E78.5 Hyperlipidemia, unspecified; G89.4 Chronic pain syndrome; F17.200 Nicotine dependence, unspecified, uncomplicated; Z20.822 Contact with and (suspected) exposure to COVID-19
CPT/HCPCS: A9579; Q9967

== ENCOUNTER 2023-11-12 13:56 | Emergency (ER) | payer MEDICARE, MEDICAID ==
[~2023-11-12] VITALS: Ht 157.5 cm; Wt 72.7 kg
[2023-11-12] VITALS (12 sets, daily range): BP systolic 121–141; BP diastolic 60–94
[2023-11-12] MEDS ORDERED: HYDROcodone/Acetaminophen 1 COMBO TAB PO ONE (14:45)
[2023-11-12] MEDS ORDERED: KETOROLAC TROMETHAMINE 30 MG/ML SDV IM ONE (16:35)
== END 2023-11-12 17:04 | disposition home or self-care (01) ==
LOC: ED 13:56
DX: S16.1XXA Strain of muscle, fascia and tendon at neck level, initial encounter (principal); S80.211A Abrasion, right knee, initial encounter; S00.81XA Abrasion of other part of head, initial encounter; S60.417A Abrasion of left little finger, initial encounter; M54.50 Low back pain, unspecified; I10 Essential (primary) hypertension; M06.9 Rheumatoid arthritis, unspecified; I25.2 Old myocardial infarction; F17.200 Nicotine dependence, unspecified, uncomplicated; W01.0XXA Fall on same level from slipping, tripping and stumbling without subsequent striking against object, initial encounter; Z86.73 Personal history of transient ischemic attack (TIA), and cerebral infarction without residual deficits; Z98.890 Other specified postprocedural states

== ENCOUNTER 2024-02-13 12:25 | Inpatient (IN) | payer MEDICARE, MEDICAID ==
[~2024-02-13] VITALS: Ht 157.5 cm; Wt 79.4 kg
[2024-02-13] VITALS (23 sets, daily range): BP systolic 84–122; BP diastolic 49–78
[2024-02-13] MEDS ORDERED: ONDANSETRON HCl 4 MG/2 ML SDV IV STA (13:03)
[2024-02-13] MEDS ORDERED: SODIUM CHLORIDE 0.9% 1,000 ML IV STA (13:03)
[2024-02-13] MEDS ORDERED: MORPHINE SULFATE 4 MG/ML VIAL IV STA (13:03)
[2024-02-13 13:27] LABS: BASO% 0.2 % (0-3); EOS% 0.4 % (0-8); HEMATOCRIT 44.4 % (37.0-47.0); IMMATURE GRANULOCYTES 0.4 % (0.0-5.0); LYMPH% 17.8 % (15-41); MEAN CORPUSCULAR HGB 28.3 pG CALC (26.0-32.0); MEAN CORPUSCULAR HGB CONC 33.3 g/dL CAL (32.0-36.0); MONO% 5.9 % (2-13); NEUT# 10.49 thou/uL (2.00-7.15); NEUT% 75.3 % (42-76); RED BLOOD COUNT 5.23 mill/uL (4.20-5.60); RED CELL DISTRI WIDTH 12.6 % (11.5-15.5)
[2024-02-13 13:34] LABS: HEMOGLOBIN 14.8 g/dl (12.0-16.0); MEAN CELL VOLUME 84.9 fL CALC (80.0-100.0)
[2024-02-13 13:48] LABS: ALBUMIN 5.1 g/dL (3.2-5.0); BUN 13 mg/dL (7-17); BUN/CREATININE RATIO 9 (12-20 (CALC)); CARBON DIOXIDE 25 mmol/l (22-30); CHLORIDE 108 mmol/l (95-108); CREATININE 1.4 mg/dL (0.5-1.0); ESTIMATED GFR 43 ML/MIN (>=90 (CALC)); LIPASE 104 u/l (23-300); SGOT/AST 27 u/l (14-36)
[2024-02-13 13:58] LABS: ALKALINE PHOSPHATASE 137 u/l (38-126); ANION GAP 14 (6-22 (CALC)); POTASSIUM 3.4 mmol/l (3.5-5.1); SODIUM 144 mmol/l (137-146)
[2024-02-13] MEDS ORDERED: PIPERACILLIN Sodium-Tazobactam 3.375 GM in SODIUM CHLORIDE 0.9% 100 ML IV STA (14:25)
[2024-02-13] MEDS ORDERED: ONDANSETRON HCl 4 MG/2 ML SDV IV PRN (15:55)
[2024-02-13] MEDS ORDERED: PHENOL 1.4 %/BTL MT PRN (16:05)
[2024-02-13] MEDS ORDERED: Pantoprazole Sodium 40 MG VIAL (Protonix) IV SCH (16:05)
[2024-02-13] MEDS ORDERED: D5 1/2 NaCL W/KCL 20MEQ 1,000 ML IV PRN (16:15)
[2024-02-13] MEDS ORDERED: HYDROmorphone HCL 2 MG/AMP IV PRN (16:35)
[2024-02-13] MEDS ORDERED: MELOXICAM15 MG PO (17:39)
[2024-02-13] MEDS ORDERED: CLONAZEPAM0.5 M1 PO (17:39)
[2024-02-13] MEDS ORDERED: NEURONTIN300 MG PO (17:40)
[2024-02-13] MEDS ORDERED: NICOTINE TRANSDERMAL 21 MG/PATCH TD SCH (20:22)
[2024-02-14] VITALS (7 sets, daily range): BP systolic 91–124; BP diastolic 52–71
[2024-02-14 05:37] LABS: URINE BLOOD DIPSTICK Trace-intact (NEGATIVE); URINE GLUCOSE - DIPSTICK Negative (NEGATIVE); URINE KETONE Negative (NEGATIVE); URINE LEUK ESTERASE Negative (NEGATIVE); URINE NITRITE - DIPSTICK Negative (Negative); URINE PROTEIN - DIPSTICK 30 mg/dL (NEG-TRACE); URINE SPECIFIC GRAVITY >=1.030; URINE UROBILINOGEN - DIPSTICK 0.2 E.U./dL (0.2)
[2024-02-14 05:39] LABS: BASO% 0.4 % (0-3); EOS% 1.3 % (0-8); IMMATURE GRANULOCYTES 0.4 % (0.0-5.0); LYMPH% 37.9 % (15-41); MEAN CORPUSCULAR HGB 28.3 pG CALC (26.0-32.0); MEAN CORPUSCULAR HGB CONC 31.1 g/dL CAL (32.0-36.0); MONO% 8.6 % (2-13); NEUT# 4.03 thou/uL (2.00-7.15); NEUT% 51.4 % (42-76); RED BLOOD COUNT 4.17 mill/uL (4.20-5.60); RED CELL DISTRI WIDTH 12.9 % (11.5-15.5)
[2024-02-14 05:41] LABS: URINE COLOR Yellow
[2024-02-14 05:52] LABS: BILIRUBIN, TOTAL 0.6 mg/dL (0.02-1.3); CREATININE 1.1 mg/dL (0.5-1.0); HEMOGLOBIN 11.8 g/dl (12.0-16.0); MAGNESIUM 2.2 mg/dL (1.6-2.3); MEAN CELL VOLUME 91.1 fL CALC (80.0-100.0); POTASSIUM 3.9 mmol/l (3.5-5.1)
[2024-02-14 06:00] LABS: URINE BACTERIA FEW hpf; URINE CALCIUM OXALATE CRYSTALS FEW lpf; URINE RBC 0-2 RBC/hpf (0-5); URINE SQUAMOUS EPITHELIAL CELL FEW EPI/hpf (0-FEW)
[2024-02-14 06:00] LABS: ALBUMIN 3.6 g/dL (3.2-5.0); TOTAL PROTEIN 6.2 g/dL (6.3-8.2)
[2024-02-14] MEDS ORDERED: methylPREDNISolone SODIUM SUCC 125 MG/2 ML SDV IV SCH (08:30)
[2024-02-14] MEDS ORDERED: Levofloxacin 750 mg Premix 150 ML IV SCH (11:00)
[2024-02-15 03:19] VITALS: BP 132/71
[2024-02-15 03:43] VITALS: BP 196/97
[2024-02-15 04:35] VITALS: BP 132/71
[2024-02-15 05:31] LABS: BASO% 0.3 % (0-3); HEMATOCRIT 36.8 % (37.0-47.0); HEMOGLOBIN 11.3 g/dl (12.0-16.0); IMMATURE GRANULOCYTES 0.9 % (0.0-5.0); LYMPH% 15.8 % (15-41); MEAN CELL VOLUME 91.1 fL CALC (80.0-100.0); MEAN CORPUSCULAR HGB CONC 30.7 g/dL CAL (32.0-36.0); MONO% 6.2 % (2-13); NEUT# 7.47 thou/uL (2.00-7.15); NEUT% 76.8 % (42-76); RED BLOOD COUNT 4.04 mill/uL (4.20-5.60); RED CELL DISTRI WIDTH 12.6 % (11.5-15.5)
[2024-02-15 05:56] LABS: ALBUMIN 3.5 g/dL (3.2-5.0); BILIRUBIN, TOTAL 0.4 mg/dL (0.02-1.3); CREATININE 0.7 mg/dL (0.5-1.0); MAGNESIUM 2.1 mg/dL (1.6-2.3); POTASSIUM 3.9 mmol/l (3.5-5.1); TOTAL PROTEIN 5.9 g/dL (6.3-8.2)
[2024-02-15 07:03] VITALS: BP 127/67
[2024-02-15 16:05] VITALS: BP 136/68
[2024-02-15 19:13] VITALS: BP 136/67
[2024-02-16 04:12] VITALS: BP 142/62
[2024-02-16 06:24] LABS: BASO% 0.5 % (0-3); EOS% 0.5 % (0-8); HEMATOCRIT 33.5 % (37.0-47.0); HEMOGLOBIN 10.7 g/dl (12.0-16.0); IMMATURE GRANULOCYTES 0.8 % (0.0-5.0); LYMPH% 38.4 % (15-41); MEAN CELL VOLUME 88.6 fL CALC (80.0-100.0); MEAN CORPUSCULAR HGB 28.3 pG CALC (26.0-32.0); MEAN CORPUSCULAR HGB CONC 31.9 g/dL CAL (32.0-36.0); MONO% 7.3 % (2-13); NEUT# 3.93 thou/uL (2.00-7.15); NEUT% 52.5 % (42-76); RED BLOOD COUNT 3.78 mill/uL (4.20-5.60); RED CELL DISTRI WIDTH 12.6 % (11.5-15.5)
[2024-02-16 06:42] LABS: ALBUMIN 3.4 g/dL (3.2-5.0); BILIRUBIN, TOTAL 0.3 mg/dL (0.02-1.3); CREATININE 0.7 mg/dL (0.5-1.0); POTASSIUM 3.6 mmol/l (3.5-5.1); TOTAL PROTEIN 5.8 g/dL (6.3-8.2)
[2024-02-16 07:06] VITALS: BP 149/77
[2024-02-16] MEDS ORDERED: PANTOPRAZOLE SODIUM Sesquihydr 40 MG/TAB PO SCH (09:00)
[2024-02-16] MEDS ORDERED: AMOX/K CLAV875 M1 PO (09:21)
== END 2024-02-16 12:16 | disposition home or self-care (01) | DRG 390 ==
LOC: ED 12:25 → ED-I 14:19 → ED 14:33 → ED-I 14:34 → MS2 17:59
PROVIDERS: Nurse Practitioner; Nurse Practitioner Family; ADMIT Internal Medicine; ATTEND Internal Medicine
DX: K56.609 Unspecified intestinal obstruction, unspecified as to partial versus complete obstruction (principal); I95.9 Hypotension, unspecified; J20.9 Acute bronchitis, unspecified; I10 Essential (primary) hypertension; I25.10 Atherosclerotic heart disease of native coronary artery without angina pectoris; M06.9 Rheumatoid arthritis, unspecified; G35 Multiple sclerosis; G89.4 Chronic pain syndrome; E78.5 Hyperlipidemia, unspecified; F41.9 Anxiety disorder, unspecified; I25.2 Old myocardial infarction; F17.200 Nicotine dependence, unspecified, uncomplicated; Z86.73 Personal history of transient ischemic attack (TIA), and cerebral infarction without residual deficits; Z98.890 Other specified postprocedural states; Z87.11 Personal history of peptic ulcer disease; Z86.010 Personal history of colon polyps; Z79.891 Long term (current) use of opiate analgesic
CPT/HCPCS: J2470